=== PATIENT | female | born 1960 | race Caucasian/White ===

== ENCOUNTER 2022-09-30 14:00 | Observation (INO) | payer MEDICAID, OTHER ==
[2022-09-30] MEDS ORDERED: predniSONE 20 MG TAB ONE (15:23)
[2022-09-30 15:37] LABS: SARS-CoV-2 NAA Rapid Test Not Detected (NotDetected)
[2022-09-30 15:50] LABS: #Eosinphils 0.1 10x3/uL (0.0-0.5); #Monocytes 0.7 10x3/uL (0.0-1.1); #Neutrophils 6.2 10x3/uL (1.5-8.4); %Basophils 0.5 % (0.0-2.0); %Monocytes 8.5 % (0.0-10.0); %Neutrophils 74.8 % (40.0-75.0); Hemoglobin 12.5 g/dL (12.0-15.5); Mean Corpuscular HGB CONC 33.2 g/dL (32.0-36.0); Mean Corpuscular Hemoglobin 30.2 pg (27.0-33.0); Mean Corpuscular Volume 91.1 fl (81.6-98.3); Mean Platelet Volume 8.7 fl (7.4-10.4); Platelet Count 247 10x3/uL (150-450); RBC Distribution Width 14.5 % (11.5-14.5); Red Blood Cell (RBC) Count 4.14 10x6/uL (3.90-5.03); White Blood Cell (WBC) Count 8.3 10x3/uL (3.5-10.5)
[2022-09-30 16:12] LABS: ALT (SGPT) 28 U/L (8-55); AST (SGOT) 33 U/L (5-34); Albumin 4.4 g/dL (3.4-4.8); Alkaline Phosphatase 157 U/L (40-110); Anion Gap 15 mmol/L (10-20); BUN (Urea Nitrogen) 17 mg/dL (9.8-20.1); Bilirubin, Total 0.5 mg/dL (0.2-1.2); Calc. Creatinine Clearance 0 mL/min (70-130); Calcium 9.4 mg/dL (7.8-10.44); Carbon Dioxide 24 mmol/L (23-31); Chloride 99 mmol/L (98-107); Estimated GFR 78; Glucose 104 mg/dL (80-115); Potassium 4.4 mmol/L (3.5-5.1); Protein, Total 7.4 g/dL (5.8-8.1); Sodium 134 mmol/L (136-145)
[2022-09-30] MEDS ORDERED: Aspirin Chewable 81 MG TAB ONE (16:32)
[2022-09-30] MEDS ORDERED: Enoxaparin Sodium 60 MG/0.6 ML SYRINGE ONE (16:32)
[2022-09-30 17:04] LABS: CKMB 2.6 ng/mL (0-6.6)
[2022-09-30] MEDS ORDERED: Nitroglycerin 0.4 MG TAB (25 Tab Bottle) SL PRN (19:37)
[2022-09-30 19:48] LABS: CKMB 2.4 ng/mL (0-6.6)
[2022-09-30] MEDS ORDERED: Acetaminophen 325 MG TAB PO PRN (20:01)
[2022-09-30] MEDS: Oseltamivir 75 MG CAP PO SCH (21:31)
[2022-09-30] MEDS: guaiFENesin ER 600 MG TAB PO SCH (21:31)
[2022-09-30 21:38] VITALS: BMI 20.7
[2022-09-30 22:16] LABS: Magnesium 1.8 mg/dL (1.6-2.6)
[2022-09-30 22:20] LABS: Troponin I 0.089 ng/mL (< 0.028)
[2022-09-30] MEDS ORDERED: FLU VACC QS2022-23(6MOS UP)/PF 60 MCG/0.5 ML SYRINGE IM ONE (23:45)
[2022-10-01] MEDS ORDERED: Pramipexole Di-HCl 0.25 MG TAB PO SCH ×2 (01:15→21:00)
[2022-10-01 04:40] LABS: Cardiac Risk 2.2 (Less than 4.5)
[2022-10-01] MEDS ORDERED: Levothyroxine 150 MCG TAB PO SCH (06:00)
[2022-10-01] MEDS: guaiFENesin ER 600 MG TAB PO SCH (08:13)
[2022-10-01] MEDS: Oseltamivir 75 MG CAP PO SCH (08:13)
[2022-10-01] MEDS ORDERED: Aspirin Chewable 81 MG TAB PO SCH (09:00)
[2022-10-01] MEDS ORDERED: Enoxaparin Sodium 40 MG/0.4 ML SYRINGE SC SCH (09:00)
[2022-10-01] MEDS ORDERED: predniSONE 20 MG TAB PO SCH (12:00)
[2022-10-01] MEDS ORDERED: Azithromycin 500 MG in Sodium Chloride 0.9% 250 ML 250 ML IVPB SCH (12:00)
[2022-10-01 16:32] VITALS: BP 140/104; TEMP 98.9
[2022-10-02] MEDS ORDERED: predniSONE 20 MG TAB PO SCH (08:00)
== END 2022-10-01 17:13 | disposition home or self-care (01) ==
LOC: CSHERS 14:00 → CSHERHOLD 18:31 → INTOOBSV 18:31 → CSHTELE 20:58
PROVIDERS: ADMIT Internal Medicine; ATTEND Family Medicine
DX: J10.1 Influenza due to other identified influenza virus with other respiratory manifestations (principal); J44.9 Chronic obstructive pulmonary disease, unspecified; E03.9 Hypothyroidism, unspecified; R77.8 Other specified abnormalities of plasma proteins; Z79.82 Long term (current) use of aspirin; Z79.899 Other long term (current) drug therapy; Z79.890 Hormone replacement therapy; Z90.09 Acquired absence of other part of head and neck; Z80.0 Family history of malignant neoplasm of digestive organs; Z87.891 Personal history of nicotine dependence; Z20.822 Contact with and (suspected) exposure to COVID-19
CPT/HCPCS: 36415; 71045; 80053; 80061; 82553; 83735; 84443; 84484; 85025; 93005; 93010; 93306; 94640; 94664; 94760; 96372; 96374; G0378; J0456; J1650; J7050; J7512; J7620